=== PATIENT | male | born 1955 | race Caucasian/White ===

== ENCOUNTER 2020-05-24 11:25 | Day surgery (SDC) | payer BC, OTHER ==
[~2020-05-24 11:25] MED LIST: Lidocaine 1% PF 5 ML VIAL ONE; Ondansetron PF 4 MG/2 ML Vial ONE; PROPOFOL 200 MG/20 ML VIAL ONE; Rocuronium Bromide 10 MG/ML (10ML VIAL) ONE; Succinylcholine Chloride 20 MG/ML 10 ml SYRINGE FS ONE
[2020-05-24] MEDS ORDERED: Ondansetron ODT 4 MG TAB ONE (11:30)
[2020-05-24 12:56] LABS: #Basophils 0.1 thou/uL (0.0-0.2); #Lymphocytes 1.6 thou/uL (1.20-3.40); #Monocytes 0.7 thou/uL (0.11-0.59); #Neutrophils 12.6 thou/uL (1.40-6.50); %Basophils 0.4 % (0.0-1.0); %Eosinophils 0.2 % (0.0-10.0); %Lymphocytes 10.3 % (21.0-51.0); %Monocytes 4.7 % (0.0-10.0); %Neutrophils 84.3 % (42.0-75.0); Mean Corpuscular Hemoglobin 30.9 pg (27.0-31.0); Mean Corpuscular Volume 93.5 fL (78.0-98.0); Platelet Count 182 thou/uL (130-400); RBC Distribution Width 11.9 % (11.5-14.5); Red Blood Cell (RBC) Count 5.52 mill/uL (4.70-6.10)
[2020-05-24] MEDS ORDERED: Ketorolac Tromethamine 30 MG/ML VIAL ONE (13:11)
[2020-05-24 13:25] LABS: ALT (SGPT) 20 U/L (8-55); AST (SGOT) 18 U/L (5-34); Albumin 4.3 g/dL (3.4-4.8); Alkaline Phosphatase 69 U/L (40-110); Anion Gap 9 mmol/L (10-20); BUN (Urea Nitrogen) 24 mg/dL (8.4-25.7); Bilirubin, Total 0.5 mg/dL (0.2-1.2); Calc. Creatinine Clearance 0 mL/min (70-130); Calcium 9.4 mg/dL (7.8-10.44); Carbon Dioxide 30 mmol/L (23-31); Chloride 104 mmol/L (98-107); Estimated GFR-MDRD 64; Globulin 2.5 g/dL (2.4-3.5); Glucose 117 mg/dL (80-115); Potassium 5.2 mmol/L (3.5-5.1); Protein, Total 6.8 g/dL (5.8-8.1); Sodium 138 mmol/L (136-145)
--- NOTE | 2020-05-24 13:49 | CT ---
CT Stone Protocol: 05/24/2020 1:29 PM HISTORY: Right flank pain for one month COMPARISON: None. TECHNIQUE: Multiple contiguous axial images were obtained and a CT of the abdomen and pelvis without IV contrast . Coronal and sagittal reformats were performed. FINDINGS: This examination is limited for the evaluation of solid organs and vascular structures due to the lac k of intravenous contrast. Lower Chest: within normal limits. Abdomen: Liver: within normal limits. There is a benign-appearing calcification along the posterior aspect of the right lobe of the liver. Bile Ducts: Normal caliber. Gallbladder: No calcified gallstones. Normal caliber wall. Pancreas: within normal limits. Spleen: within normal limits. Adrenals: within normal limits. Kidneys: Mild right hydronephrosis. There are bilateral renal cysts measuring up to 4.8 cm in size. Pelvis: Reproductive Organs: No pelvic masses. Ureters: There is a 5 mm proximal right ureteral calcification with mild right hydroureter Bladder: within normal limits. Bowel: Normal caliber. Normal appendix. Mesenteric Lymph Nodes: No enlarged mesenteric lymph nodes. Peritoneum: No ascites or free air, no fluid collection. Vessels: Atherosclerotic calcifications in the aorta Retroperitoneum: within normal limits. Abdominal Wall: within normal limits. Bones: Degenerative changes in the spine. IMPRESSION: 1. Proximal right ureteral calcification with mild right hydronephrosis 2. Bilateral renal cysts
[2020-05-24 13:58] LABS: Bacteria/HPF None Seen HPF (None Seen); Bilirubin Negative (Negative); Blood, Urine 1+ (Negative); Clarity Clear (Clear); Glucose, Urine (Dipstick) Normal (Negative); Ketone, Urine Negative (Negative); Leukocyte Negative Leu/uL (Negative); Nitrite Negative (Negative); Protein, Urine (Dipstick) Negative (Neg-Trace); Specific Gravity, Urine 1.023 (1.002-1.036); Squamous Epithelial None Seen HPF (0-3); Urobilinogen Normal mg/dL (Less than 2); WBC/HPF 0-3 HPF (0-3); pH, Urine 7.5 (5.0-9.0)
[2020-05-24 16:11] LABS: SARS-CoV-2 NAA Rapid Test Not Detected (NotDetected)
[2020-05-24] MEDS ORDERED: Fentanyl 100 MCG/2 ML VIAL ONE (16:29)
[2020-05-24] MEDS ORDERED: Iothalamate Meglumine 60% 50 ML VIAL FS ONE (16:46)
[2020-05-24] MEDS ORDERED: Levofloxacin 500 mg/D5W 100 ml Premix Bag ONE (16:58)
[2020-05-24] MEDS ORDERED: Phenazopyridine HCl 97.5 MG TABLET ONE (18:18)
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
--- NOTE | 2020-05-24 22:23 | OP ---
DATE OF PROCEDURE: 05/24/2020 SERVICE: Urology. PREOPERATIVE DIAGNOSIS: Right ureteral stone with acute kidney injury. POSTOPERATIVE DIAGNOSIS: Right ureteral stone with acute kidney injury. PROCEDURE PERFORMED: Cystoscopy with right ureteral stent placement, 6 x 26 double-J stent. INDICATION FOR PROCEDURE: Mr. Aguila is a 64-year-old white male, who presented to the ER with severe pain in his right ureteral stone measuring 5 mm. He elected to have a ureteral stent placed. Risks and benefits of the procedure were discussed and he has agreed to proceed forward. DESCRIPTION OF PROCEDURE: After identification of armband and verification of consent, the patient was brought back to the operating room and he underwent general anesthesia with endotracheal intubation. He was then placed in dorsal lithotomy position and prepped and draped in usual sterile fashion. After appropriate time-out, a lubricated 22-Malay rigid cystoscope was introduced per urethra into the bladder. Attention was turned to the right ureteral orifice which was cannulated with a 0.035 Sensor wire and navigated up to the kidney. The stone was fluoroscopically visible on plain film and the wire was seen to pass the stone and into the kidney. A 6 x 26 double-J stent was advanced over the Sensor wire up to the level of renal pelvis and then the wire removed leaving a good curl in the kidney and a good curl in the bladder. The bladder was then emptied and the cystoscope removed. The patient then awakened and taken to PACU for recovery in stable condition. COMPLICATIONS: None. ESTIMATED BLOOD LOSS: Minimal. RETAINED TUBES AND DRAINS: 6 x 26 double-J stent on the right. SPECIMENS: None. DISPOSITION: The patient will be discharged home. He can follow up with me on an outpatient basis for definitive stone management. Alternatively, if he elects to follow up with his urologist in [place], then he does not need any further follow up with me. He has been thoroughly explained about the risk of retained stent and states he must keep a followup appointment to have a stent ultimately removed. Job ID: [id number]
--- NOTE | 2020-05-28 15:35 | EKG ---
Test Reason : Blood Pressure : / mmHG Vent. Rate : 067 BPM Atrial Rate : 067 BPM P-R Int : 186 ms QRS Dur : 082 ms QT Int : 388 ms P-R-T Axes : 031 037 045 degrees QTc Int : 409 ms Sinus rhythm with marked sinus arrhythmia Otherwise normal ECG No previous ECGs available Confirmed by HUNG HILLIARD M.D. ([id number] on 05/28/2020 3:35:01 PM Referred By: JERONIMO Confirmed By:HUNG HILLIARD M.D.
== END 2020-05-24 20:00 | disposition home or self-care (01) ==
LOC: ERS 11:25 → SDC 16:35 → ERS 20:00 → SDC 20:00
PROVIDERS: ATTEND Urology
PROC: 0T768DZ Dilation of Right Ureter with Intraluminal Device, Via Natural or Artificial Opening Endoscopic (ICD-10-PCS; principal; 2020-05-24)
DX: N13.2 Hydronephrosis with renal and ureteral calculous obstruction (principal); N17.9 Acute kidney failure, unspecified; N28.1 Cyst of kidney, acquired; I10 Essential (primary) hypertension; E78.5 Hyperlipidemia, unspecified; F17.220 Nicotine dependence, chewing tobacco, uncomplicated; Z79.82 Long term (current) use of aspirin; Z79.899 Other long term (current) drug therapy; Z20.828 Contact with and (suspected) exposure to other viral communicable diseases
CPT/HCPCS: 36415; 74176; 74420; 80053; 81003; 81015; 85025; 93005; 93010; 96361; 96374; J1885; J1956; J2405; J2704; J3010; Q0162; U0002

== ENCOUNTER 2020-06-04 07:51 | Outpatient (CLI) | payer BC, OTHER ==
[2020-06-04 16:25] LABS: Hemoglobin 16.7 g/dL (14.0-18.0); Mean Corpuscular HGB CONC 32.3 g/dL (32.0-36.0); Mean Corpuscular Hemoglobin 30.8 pg (27.0-31.0); Mean Corpuscular Volume 95.3 fL (78.0-98.0); Mean Platelet Volume 9.4 fL (7.4-10.4); Platelet Count 220 thou/uL (130-400); RBC Distribution Width 11.8 % (11.5-14.5); Red Blood Cell (RBC) Count 5.43 mill/uL (4.70-6.10); White Blood Cell (WBC) Count 7.5 thou/uL (4.8-10.8)
[2020-06-04 16:34] LABS: Bacteria/HPF None Seen HPF (None Seen); Bilirubin Negative (Negative); Blood, Urine 3+ (Negative); Clarity Turbid (Clear); Glucose, Urine (Dipstick) Normal (Negative); Ketone, Urine Negative (Negative); Leukocyte 500 Leu/uL (Negative); Nitrite Negative (Negative); Protein, Urine (Dipstick) 50 mg/dL (Neg-Trace); RBC/HPF Greater than 50 HPF (0-3); Specific Gravity, Urine 1.019 (1.002-1.036); Squamous Epithelial None Seen HPF (0-3); Urobilinogen Normal mg/dL (Less than 2)
[2020-06-04 16:42] LABS: Prothrombin Time 12.9 sec (12.0-14.7)
[2020-06-04 16:54] LABS: Anion Gap 13 mmol/L (10-20); BUN (Urea Nitrogen) 13 mg/dL (8.4-25.7); Calc. Creatinine Clearance 0 mL/min (70-130); Calcium 9.5 mg/dL (7.8-10.44); Carbon Dioxide 28 mmol/L (23-31); Chloride 104 mmol/L (98-107); Estimated GFR-MDRD 81; Glucose 79 mg/dL (80-115); Potassium 5.1 mmol/L (3.5-5.1); Sodium 140 mmol/L (136-145)
[2020-06-05 14:59] LABS: SARS-CoV-2 MS2 Positive; SARS-CoV-2 N Gene Negative; SARS-CoV-2 S Gene Negative; SARS-CoV-2 by NAA Not Detected (NotDetected); SARS-CoV-2 orf1ab Negative
--- NOTE | 2020-06-05 16:19 | EKG ---
Test Reason : Blood Pressure : / mmHG Vent. Rate : 055 BPM Atrial Rate : 062 BPM P-R Int : 190 ms QRS Dur : 084 ms QT Int : 416 ms P-R-T Axes : 043 059 050 degrees QTc Int : 397 ms Normal sinus rhythm Normal ECG Confirmed by BERTHA ESPINOSA ([id number]) on 06/05/2020 4:18:53 PM Referred By: ELDA Confirmed By:BERTHA ESPINOSA
== END 2020-06-04 07:52 | disposition home or self-care (01) ==
LOC: LABBT 07:51
PROVIDERS: ATTEND Urology
DX: Z01.818 Encounter for other preprocedural examination (principal); Z20.828 Contact with and (suspected) exposure to other viral communicable diseases; N20.0 Calculus of kidney
CPT/HCPCS: 80048; 81001; 85027; 85610; 85730; 87086; 87635; 93005; 93010; U0003

== ENCOUNTER 2020-06-07 07:24 | Day surgery (SDC) | payer BC ==
[2020-06-05 13:58] VITALS: BMI 33.0
[2020-06-07] MEDS ORDERED: Levofloxacin 500 mg/D5W 100 ml Premix Bag ONE (09:08)
[2020-06-07] MEDS ORDERED: B & O ONE (09:45)
[2020-06-07] MEDS ORDERED: Fentanyl 100 MCG/2 ML VIAL ONE (09:52)
[2020-06-07] MEDS ORDERED: Dexamethasone 20 MG/5 ML VIAL ONE (10:20)
[2020-06-07] MEDS ORDERED: Ketorolac Tromethamine 30 MG/ML VIAL ONE (10:20)
[2020-06-07] MEDS ORDERED: Ondansetron PF 4 MG/2 ML Vial ONE (10:20)
[2020-06-07] MEDS ORDERED: Lidocaine 1% PF 5 ML VIAL ONE (10:20)
[2020-06-07] MEDS ORDERED: PROPOFOL 200 MG/20 ML VIAL ONE (10:20)
[2020-06-07] MEDS ORDERED: Midazolam HCl 2 mg/2 ml Vial ONE (10:27)
--- NOTE | 2020-06-07 13:23 | OP ---
DATE OF PROCEDURE: 06/07/2020 SERVICE: Urology. PREOPERATIVE DIAGNOSIS: Right renal stone. POSTOPERATIVE DIAGNOSIS: Right renal stone. PROCEDURE PERFORMED: Right ureteroscopy, laser lithotripsy, basket extraction of stone and placement of a 6 x 26 double-J stent with no string. INDICATION FOR PROCEDURE: Mr. Aguila is a 64-year-old white male who initially presented [facility] [place] with acute kidney injury and a 5-mm proximal ureteral stone. He underwent ureteral stenting at that time. His renal injury has recovered, and he is now presenting for definitive stone management. Risks and benefits of the surgery have been discussed, and he has agreed to proceed forward. DESCRIPTION OF PROCEDURE: After identification of armband and verification of consent, the patient was brought back to the operating room. He underwent general anesthesia with an LMA. He was then placed in dorsal lithotomy position and prepped and draped in usual sterile fashion. After appropriate time-out, a lubricated 22-Congolese rigid cystoscope was introduced per urethra into the bladder, and attention was turned to the right ureteral orifice from which there was a stent emanating. Flexible graspers were used to grasp the stent and bring it up to the level of the urethral meatus. A 0.035 Sensor wire was advanced through the ureteral stent up to the level of renal pelvis and the ureteral stent removed and discarded. The Sensor wire was affixed to the drapes as a safety wire. A semi-rigid ureteroscope was then passed alongside the Sensor wire into the bladder and into the distal right ureter. Ureteroscopy was performed up to the mid ureter where no stone was encountered indicating that distal migration had not occurred. Super Stiff wire was then placed through the ureteroscope up to the level of renal pelvis. The ureteroscope was then removed. A long 12/14-Congolese Bard ureteral access sheath was then advanced over the Super Stiff wire up to the level of the proximal ureter. The inner cannula was removed and along with the Super Stiff wire, leaving the outer sheath and Sensor wire in place as a safety wire. A flexible digital ureteroscope was then passed through the ureteral access sheath into the renal pelvis where the stone was encountered in the mid pole. Using a 200 micron ball-tip laser fiber, the stone was fragmented into small pieces and the pieces extracted using a 1.9-Congolese Walkabout basket. All fragments over a millimeter were removed. The only pieces left were a few small tiny fragments, are submillimeter and too small to grab. I felt this would pass without issue. Some of the other papilla did demonstrate calcifications indicating the patient is at high risk for future stones. Pull-back ureteroscopy was employed, no additional stones were found within the ureter. However, there was a dilation at the mid ureter with mucosal splitting as such the patient will need prolonged stenting for 2 weeks. The ureteroscope was then fully removed. A cystoscope was then backloaded over the Sensor wire back into the bladder and a 6 x 26 double-J stent with no string attached was advanced over the Sensor wire up to the level of renal pelvis. The wire was removed leaving a good curl in the kidney and a good curl in the bladder. The bladder was then emptied and cystoscope removed. The patient had B and O suppositories placed in the rectum. He was taken out of positioning, awakened, and taken to PACU for recovery in stable condition. COMPLICATIONS: None. ESTIMATED BLOOD LOSS: Minimal. RETAINED TUBES AND DRAINS: 6 x 26 double-J stent on the right. SPECIMENS: Stone to stone analysis.. DISPOSITION: The patient will be discharged to home and follow up with me in 2 weeks for cysto and stent removal. Job ID: [id number]
[2020-06-07] MEDS ORDERED: HYDROcodone/Acetaminophen 5/325 mg Tablet ONE (14:23)
== END 2020-06-07 15:20 | disposition home or self-care (01) ==
LOC: SDC 07:24
PROVIDERS: ATTEND Urology
PROC: 0T768DZ Dilation of Right Ureter with Intraluminal Device, Via Natural or Artificial Opening Endoscopic (ICD-10-PCS; principal; 2020-06-07)
PROC: 0TC38ZZ Extirpation of Matter from Right Kidney Pelvis, Via Natural or Artificial Opening Endoscopic (ICD-10-PCS; principal; 2020-06-07)
DX: N20.0 Calculus of kidney (principal); F17.220 Nicotine dependence, chewing tobacco, uncomplicated; I10 Essential (primary) hypertension; E78.5 Hyperlipidemia, unspecified; Z79.82 Long term (current) use of aspirin; Z79.899 Other long term (current) drug therapy
CPT/HCPCS: 76000; 82365; 88300; J1100; J1885; J1956; J2250; J2405; J2704; J3010

== ENCOUNTER 2020-08-21 08:29 | Outpatient (CLI) | payer MEDICARE ==
--- NOTE | 2020-08-21 09:19 | ULT ---
Renal sonogram HISTORY: Hydronephrosis. Follow-up. COMPARISON: CT abdomen 05/24/2020. FINDINGS: Right kidney is 13.0 cm length, without hydronephrosis. Mild diffuse cortical thinning. A p artially exophytic cyst projecting medially from the inferior pole is 2.9 cm greatest diameter. Urinary bladder has a normal appearance. Left kidney is 14.6 cm length without hydronephrosis. Mild diffuse cortical thinning. Small cluster o f cysts at the lateral aspect of the inferior pole present. Largest cyst measures up to 4.6 cm. No solid masses. IMPRESSION : Bilateral renal cysts. No residual hydronephrosis. Mild diffuse cortical thinning as seen with chronic medical renal disease.
== END 2020-08-21 08:30 | disposition home or self-care (01) ==
LOC: BICULT 08:29
PROVIDERS: ATTEND Urology
DX: N13.30 Unspecified hydronephrosis (principal); N20.1 Calculus of ureter; N28.1 Cyst of kidney, acquired; N18.9 Chronic kidney disease, unspecified; N28.89 Other specified disorders of kidney and ureter
CPT/HCPCS: 76770